=== PATIENT | female | born 1960 | race Caucasian/White ===

== ENCOUNTER 2016-12-03 17:03 | Emergency (ER) | payer MEDICAID ==
[~2016-12-03] VITALS: Ht 162.6 cm; Wt 90.7 kg
[~2016-12-03 17:03] MED LIST: AC500T PO; ACET-1697 PO; AMOXICILLIN 875MG PO; BACL20TA PO; BCL10T PO; CYCL10TA45 PO; CYCL10TA9 PO; DULO60CA6 PO; ESCT10T; GBPN600T PO; HYDR-3714 PO; IBP800T PO; LORA0.5T PO; LVST20T; MECL25TA56 PO; OMEP40CA36 PO; OMG1KC PO; ONDA-42 SL; PRED10TA PO; PRILOSEC; TRAM-21 PO; TRAM50TA2 PO
[2016-12-03] MEDS ORDERED: ASPIRIN 81 MG CHEW (CHILDREN'S ASA) ONE (17:20)
[2016-12-03] MEDS ORDERED: ASPIRIN 81 MG CHEW (CHILDREN'S ASA) PO ONE (17:30)
[2016-12-03] MEDS ORDERED: RX-NITROGLYCERIN 0.4 MG TAB BTL 25'S SL ONE (17:30)
[2016-12-03 17:33] LABS: BASOPHILS # (AUTO) 0.1 10^3/uL (0.0-0.1); BASOPHILS % (AUTO) 1 % (0-10); EOSINOPHILS # (AUTO) 0.2 10^3/uL (0.0-0.3); EOSINOPHILS % (AUTO) 2 % (0-10); LYMPHOCYTES # (AUTO) 5.6 X 10^3 (1.0-4.0); LYMPHOCYTES % (AUTO) 46 % (12-44); MEAN CORPUSCULAR HEMOGLOBIN 29 PG (25-34); MEAN CORPUSCULAR HGB CONC 34 G/DL (32-36); MEAN CORPUSCULAR VOLUME 86 FL (80-99); MEAN PLATELET VOLUME 10.5 FL (7.4-10.4); MONOCYTES # (AUTO) 1.3 X 10^3 (0.0-1.0); MONOCYTES % (AUTO) 11 % (0-12); NEUTROPHILS % (AUTO) 41 % (42-75); PLATELET COUNT 271 10^3/uL (130-400); RED BLOOD COUNT 5.44 10^6/uL (4.35-5.85); RED CELL DISTRIBUTION WIDTH 13.6 % (10.0-14.5); WHITE BLOOD COUNT 12.2 10^3/uL (4.3-11.0)
[2016-12-03 17:42] LABS: PROTHROMBIN TIME PATIENT 12.6 SEC (12.2-14.7)
--- NOTE | 2016-12-03 17:46 | Diagnostic Imaging Report ---
Indication: Chest pain. Discussion: Single portable upright view of the chest was obtained, comparison 06/09/2016. No adverse interval change. The lungs remain hyperinflated. No focal consolidation, pleural fluid, or pneumothorax. Stable normal heart size. No osseous abnormality. Impression: 1. Stable pulmonary hyperinflation. Dictated by: Dictated on workstation # [id number]
[2016-12-03 17:50] LABS: ALANINE AMINOTRANSFERASE 36 U/L (0-55); ALBUMIN 4.2 G/DL (3.2-4.5); ANION GAP 10 MMOL/L (5-14); ASPARTATE AMINO TRANSFERASE 20 U/L (5-34); BILIRUBIN,TOTAL 0.4 MG/DL (0.1-1.0); BLOOD UREA NITROGEN 15 MG/DL (7-18); BUN/CREATININE RATIO 18; CARBON DIOXIDE 23 MMOL/L (21-32); CHLORIDE 108 MMOL/L (98-107); CREATININE SERUM 0.83 MG/DL (0.60-1.30); GFR ESTIMATED > 60; GLUCOSE 106 MG/DL (70-105); MAGNESIUM 2.1 MG/DL (1.8-2.4); SODIUM 141 MMOL/L (135-145); TOTAL PROTEIN 7.5 G/DL (6.4-8.2)
[2016-12-03 17:56] LABS: MYOGLOBIN SERUM 26.1 NG/ML (10.0-92.0)
--- NOTE | 2016-12-03 17:59 | ED Chest Pain ---
General Chief Complaint: Chest Pain Stated Complaint: CP Nursing Triage Note: PT TO ED 7 W/ C/O CHEST PAIN ONSET X2-3 DAYS, WORSE TODAY. Nursing Sepsis Screen: No Definite Risk Source: patient, old records Exam Limitations: no limitations History of Present Illness Time seen by provider: 17:20 Initial Comments This 56-year-old woman presents to emergency room with complaints of chest pain intermittently over the past few days. Pain today started upon waking. She describes it as an aching that radiates to the neck, left arm, and shoulder. She now rates it as 7/10. She reports having bronchitis a couple of weeks ago which seems to have improved. She has associated nausea and shortness of air. She cannot identify any specific exacerbating or alleviating factors. Review of her chart reveals a cardiac catheterization in 2013. She had irregularity of the coronary arteries without any obstructive disease. Her primary care provider is Irene Vick in [place]. Her recruiting administrator is Dr. Melendez. She has not followed up with Dr. Melendez since the cardiac catheter. She does continue to smoke. Her anterior chest wall is tender to palpation. Allergies and Home Medications Allergies Coded Allergies: propoxyphene (Verified Allergy, Unknown, 10/09/06) morphine (Verified Adverse Reaction, Unknown, 01/05/15) Home Medications [place] 3 Polyunsat Fatty Acids 1,000 Mg Cap, 1,000 MG PO DAILY, (Reported) Prednisone 20 Mg Tab, 20 MG PO DAILY, #3 Prescribed by: ANDREW QUIÑONEZ on 12/03/16 1910 Tramadol Hcl 50 Mg Tablet, 50-100 MG PO BID PRN for PAIN, (Reported) TAKES 1-2 (50MG) TABLET Review of Systems Constitutional: no symptoms reported EENTM: No Symptoms Reported Respiratory: See HPI Cardiovascular: See HPI Gastrointestinal: See HPI Genitourinary: No Symptoms Reported Musculoskeletal: see HPI Skin: no symptoms reported Psychiatric/Neurological: No Symptoms Reported Endocrine: No Symptoms Reported Hematologic/Lymphatic: No Symptoms Reported Past Jkerqwk-Ndadqc-Qxflyo Hx Patient Social History Alcohol Use: Denies Use Recreational Drug Use: No Smoking Status: Current Everyday Smoker Type Used: Cigarettes 2nd Hand Smoke Exposure: Yes Recent Foreign Travel: No Contact w/Someone Who Travel: No Recent Infectious Disease Expo: No Recent Hopitalizations: Yes Immunizations Up To Date Tetanus Booster (TDap): More than 5yrs PED Vaccines UTD: Yes Date of Pneumonia Vaccine: January 23, 2013 Seasonal Allergies Seasonal Allergies: Yes Surgeries HX Surgeries: Yes (EGD) Surgeries: Section, Hysterectomy, Oophorectomy Respiratory Hx Respiratory Disorders: Yes (tobaccoism) Respiratory Disorders: COPD Cardiovascular Hx Cardiac Disorders: No Neurological Hx Neurological Disorders: Yes Neurological Disorders: Headaches /Migraines Reproductive System Hx Reproductive Disorders: Yes (CERVICAL DYSPLASIA / ?CANCER? 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 Genitourinary Hx Genitourinary Disorders: No Gastrointestinal Hx Gastrointestinal Disorders: Yes Gastrointestinal Disorders: Gastroesophageal Reflux, Hemorrhoids Musculoskeletal Hx Musculoskeletal Disorders: Yes Musculoskeletal Disorders: Fibromyalgia, Scoliosis, Chronic Back Pain Endocrine Hx Endocrine Disorders: Yes (HYPOGLYCEMIC-CONTROLS WITH DIET) HEENT HX ENT Disorders: No Cancer Hx Cancer: No Psychosocial Hx Psychiatric Problems: Yes (NO MEDICATIONS) Behavioral Health Disorders: Anxiety, Depression Integumentary HX Skin/Integumentary Disorder: No Blood Transfusions Hx Blood Disorders: No Adverse Reaction to a Blood Tr: No Family Medical History Significant Family History: Heart Disease, Cancer, COPD Physical Exam Vital Signs Vital Sign - Last 12Hours Capillary Refill : Less Than 3 Seconds General Appearance: WD/WN, Mild Distress HEENT: PERRL/EOMI, Normal ENT Inspection Neck: Normal Inspection Respiratory: Lungs Clear, Normal Breath Sounds, No Accessory Muscle Use, No Respiratory Distress, Other (left anterior chest wall tender to palpation) Cardiovascular: Regular Rate, Rhythm, No Edema, No Murmur Gastrointestinal: Normal Bowel Sounds, Non Tender, Soft Extremity: Normal Inspection, Non Tender, No Calf Tenderness, No Pedal Edema, Other (negative Marli) Neurologic/Psychiatric: Alert, Oriented x3, No Motor/Sensory Deficits, Normal Mood/Affect, wildlife biology internship II-XII Norm as Tested Skin: Normal Color, Warm/Dry Progress/Results/Core Measures Results/Orders Lab Results Laboratory Tests Test 12/03/16 17:25 Range/Units White Blood Count 12.2 H 4.3-11.0 10^3/uL Red Blood Count 5.44 4.35-5.85 10^6/uL Hemoglobin 16.0 11.5-16.0 G/DL Hematocrit 47 35-52 % Mean Corpuscular Volume 86 80-99 FL Mean Corpuscular Hemoglobin 29 25-34 PG Mean Corpuscular Hemoglobin Concent 34 32-36 G/DL Red Cell Distribution Width 13.6 10.0-14.5 % Platelet Count 271 130-400 10^3/uL Mean Platelet Volume 10.5 H 7.4-10.4 FL Neutrophils (%) (Auto) 41 L 42-75 % Lymphocytes (%) (Auto) 46 H 12-44 % Monocytes (%) (Auto) 11 0-12 % Eosinophils (%) (Auto) 2 0-10 % Basophils (%) (Auto) 1 0-10 % Neutrophils # (Auto) 5.0 1.8-7.8 X 10^3 Lymphocytes # (Auto) 5.6 H 1.0-4.0 X 10^3 Monocytes # (Auto) 1.3 H 0.0-1.0 X 10^3 Eosinophils # (Auto) 0.2 0.0-0.3 10^3/uL Basophils # (Auto) 0.1 0.0-0.1 10^3/uL Prothrombin Time 12.6 12.2-14.7 SEC INR Comment 1.0 0.8-1.4 Activated Partial Thromboplast Time 31 24-35 SEC Sodium Level 141 135-145 MMOL/L Potassium Level 4.0 3.6-5.0 MMOL/L Chloride Level 108 H 98-107 MMOL/L Carbon Dioxide Level 23 21-32 MMOL/L Anion Gap 10 5-14 MMOL/L Blood Urea Nitrogen 15 7-18 MG/DL Creatinine 0.83 0.60-1.30 MG/DL Estimat Glomerular Filtration Rate > 60 BUN/Creatinine Ratio 18 Glucose Level 106 H 70-105 MG/DL Calcium Level 10.0 8.5-10.1 MG/DL Magnesium Level 2.1 1.8-2.4 MG/DL Total Bilirubin 0.4 0.1-1.0 MG/DL Aspartate Amino Transf (AST/SGOT) 20 5-34 U/L Alanine Aminotransferase (ALT/SGPT) 36 0-55 U/L Alkaline Phosphatase 57 40-136 U/L Myoglobin 26.1 10.0-92.0 NG/ML Troponin I < 0.30 <0.30 NG/ML Total Protein 7.5 6.4-8.2 G/DL Albumin 4.2 3.2-4.5 G/DL My Orders Orders - ANDREW GALLARDO MD Cbc With Automated Diff (12/03/16 17:18) Magnesium (12/03/16 17:18) Chest 1 View, Ap/Pa Only (12/03/16 17:18) Ekg Tracing (12/03/16 17:18) Cardiac Profile 1 (12/03/16 17:18) Comprehensive Metabolic Panel (12/03/16:18) Myoglobin Serum (12/03/16:18) Protime With Inr (12/03/16 17:18) Partial Thromboplastin Time (12/03/16 17:18) O2 (12/03/16 17:18) Monitor-Rhythm Ecg Trace Only (12/03/16:18) Saline Lock/Iv-Start (12/03/16 17:18) Aspirin Chewable Tablet (Baby Aspirin Ch (12/03/16 17:20) Aspirin Chewable Tablet (Baby Aspirin Ch (12/03/16 17:30) Rx-Nitroglycerin Sl Tabs (Rx-Nitrostat S (12/03/16 17:30) Ketorolac Injection (Toradol Injection) (12/03/16 18:00) Medications Given in ED Vital Signs/I&O Vital Sign - Last 12Hours 12/03/16 12/03/16 12/03/16 17:11 17:11 19:17 Temp 96.9 Pulse 79 57 Resp 20 18 B/P (MAP) 137/82 Pulse Ox 98 96 O2 Delivery Room Air Room Air Blood Pressure Mean: 100 Progress Note : Progress Note Pain improved from 03/04 to 12/03 with Toradol. Pain is atypical in nature and reproducible with palpation. Case reviewed with Dr. Melendez who would like her to follow-up in the office. Review of labs reveals a lymphocytic predominance which would support a viral illness associated with the "bronchitis" patient described having 1 to 2 weeks ago. ECG Initial ECG Impression Date: Dec 03, 2016 Initial ECG Impression Time: 17:14 Initial ECG Rate: 63 Initial ECG Rhythm: Normal Sinus Initial ECG Intervals: Normal Initial ECG Impression: Normal Comment Normal sinus rhythm with no ST elevation or depression. No abnormal intervals or axis deviation. No significant change from prior. Diagnostic Imaging Diagonstic Imaging: Xray Plain Films/CT/US/NM/MRI: chest Comments Chest x-ray viewed by me and report reviewed. See report below: NAME: DEB BOSS [facility] REC#: [id number] PT STATUS: REG ER : 1960 PHYSICIAN: ANDREW GALLARDO MD ADMIT DATE: 12/03/16/ER Draft Date of Exam:12/03/16 CHEST 1 VIEW, AP/PA ONLY Indication: Chest pain. Discussion: Single portable upright view of the chest was obtained, comparison 06/09/2016. No adverse interval change. The lungs remain hyperinflated. No focal consolidation, pleural fluid, or pneumothorax. Stable normal heart size. No osseous abnormality. Impression: 1. Stable pulmonary hyperinflation. Dictated on workstation # [id number] Dict: 12/03/161741 Trans: 12/03/16 1745 [facility] [id number] Interpreted by: BOSTON JOLLEY MD Departure Impression Impression: Primary Impression: Chest wall pain Additional Impression: Viral syndrome Disposition: 01 HOME, SELF-CARE Condition: Improved Departure-Patient Inst. Referrals: NO,LOCAL PHYSICIAN (PCP/Family) Primary Care Physician Patient Instructions: Costochondritis (DC), Chest Pain That Is Not Caused by the Heart (DC) Add. Discharge Instructions: Take ibuprofen up to 600 mg every 6 hours as needed for pain. Take Ibuprofen with food or milk. Add Tylenol (acetaminophen) up to 1000 mg as needed for additional pain relief. Follow-up with Dr. Melendez and your primary care provider as soon as possible. Work toward quitting smoking. Seek assistance from your doctor if necessary. Return to ER if symptoms worsen. All discharge instructions reviewed with patient and/or family. Voiced understanding. Scripts Prednisone (Prednisone) 20 Mg Tab 20 MG PO DAILY, #3 TAB Prov: ANDREW GALLARDO MD 12/03/16 Copy Copies To 1: GLORIA MELENDEZ MD, JOSHUA T MD Dec 03, 2016 17:59
[2016-12-03] MEDS ORDERED: KETOROLAC 30 MG/ML VIAL IVP ONE (18:00)
[2016-12-03] MEDS ORDERED: PRD20T PO (19:10)
[2016-12-03 19:17] VITALS: BP 118/71
== END 2016-12-03 19:17 | disposition home or self-care (01) ==
LOC: EDUNIT# 17:03 → ER 17:06
DX: R07.89 Other chest pain (principal); B34.9 Viral infection, unspecified; J44.9 Chronic obstructive pulmonary disease, unspecified; F17.210 Nicotine dependence, cigarettes, uncomplicated
CPT/HCPCS: 36415; 71010; 80053; 83735; 83874; 84484; 85025; 85610; 85730; 93005; 96374

== ENCOUNTER → 2018-12-19 | Outpatient (CLI) | payer SELFPAY ==
[~2018-12-19] MED LIST changes: +PRD20T PO
--- NOTE | 2018-12-19 15:19 | Diagnostic Imaging Report ---
MRI LT UPPER EXT JOINT W/O TECHNIQUE: Multiplanar, multisequence MR imaging of the left shoulder was performed without contrast. COMPARISON: None available. INDICATION: Left shoulder pain and decreased range of motion. FINDINGS: Rotator cuff: No high-grade partial or full-thickness rotator cuff tear. Low-grade partial-thickness bursal sided tear of the conjoined insertional fibers of supraspinatus and infraspinatus involves less than 50% of the thickness. No rotator cuff muscle atrophy or denervation injury. Glenoid labrum: By non-arthrogram imaging, the glenoid labrum appears intact. No para-labral cyst. Long head of biceps: Long head of biceps is normally positioned within the bicipital groove. The intracapsular segment is intact. Bones and cartilage: Humeral head is normal in morphology without fracture or focal osseous lesion. No glenohumeral chondromalacia. Minimal degenerative capsular hypertrophy of the acromioclavicular joint. No inferior projecting osteophytes into the subacromial space. Soft tissues: No glenohumeral joint effusion. Ill defined capsular thickening inferior axillary pouch. No fluid or inflammatory like signal within the subacromial/subdeltoid space to indicate bursitis. IMPRESSION: 1. Low-grade partial-thickness bursal-sided tear of the conjoined insertional fibers of supraspinatus and infraspinatus. No retracted rotator cuff tear or muscle atrophy. 2. MRI features suggest adhesive capsulitis. Correlation with physical exam is advised. 3. Long head of biceps is intact. Dictated by: Dictated on workstation # [id number]
== END ==
LOC: RAD 13:58
PROVIDERS: ATTEND Nurse Practitioner Primary Care
DX: M75.102 Unspecified rotator cuff tear or rupture of left shoulder, not specified as traumatic (principal)
CPT/HCPCS: 73221

== ENCOUNTER → 2019-04-24 | Outpatient (CLI) | payer OTHER ==
[~2019-04-24] MED LIST changes: +GADOBUTROL 10 MMOL/10 ML (GADAVIST) VIAL IV ONE
--- NOTE | 2019-04-24 13:41 | Diagnostic Imaging Report ---
CLINICAL INDICATION: Patient has been having dizzy spells for several weeks now. EXAM: MRI of the brain performed without and with 10 cc of Gadavist IV contrast. Sequences include axial DWI, ADC map, coronal gradient echo, axial T2, axial FLAIR, axial T1, axial T1 post IV contrast, coronal T1 fat-sat post IV contrast, and sagittal T1 post IV contrast. COMPARISON: None. FINDINGS: There is no evidence of acute cerebral infarct, intracranial hemorrhage, or gross mass effect. There is no abnormal IV contrast enhancement. The brain parenchymal volume appears appropriate for patient's age. There are a few focal areas of high T2 signal white matter changes involving both frontal lobes, likely representing chronic small vessel ischemic disease. There is normal marino-white matter distinction. There is no significant midline shift or herniation. The [place] vascular structures show no gross abnormality as visualized. There is no evidence of hydrocephalus. The basal cisterns are unremarkable. The skull, extracranial soft tissue, and orbits are unremarkable. The paranasal sinuses are unremarkable. Temporal bones show no significant abnormality. IMPRESSION: Age-related brain parenchymal changes with no acute intracranial process. There is no abnormal IV contrast enhancement. Dictated by: Dictated on workstation # [id number]
== END ==
LOC: RAD 04-20 10:57
PROVIDERS: ATTEND Nurse Practitioner Primary Care
DX: G93.89 Other specified disorders of brain (principal)
CPT/HCPCS: 70553

== ENCOUNTER 2022-01-23 12:49 | Emergency (ER) | payer SELFPAY ==
[~2022-01-23] VITALS: Ht 162.5 cm; Wt 95.2 kg
[~2022-01-23 12:49] MED LIST changes: -GADOBUTROL 10 MMOL/10 ML (GADAVIST) VIAL IV ONE
[2022-01-23] MEDS ORDERED: NS IV 1000 ML 1,000 ML IV SCH (13:45)
--- NOTE | 2022-01-23 13:52 | ED General ---
General Chief Complaint: Dizziness/Syncope Stated Complaint: LOW TEMP,DIZZINESS Nursing Triage Note: Pt ambulatory to ED c/o dizziness and sinus pain onset yesterday. Hx of sinus infections, has been taking meclizine. Pt also reprots low temp at home-95degrees History of Present Illness Date Seen by Provider: January 23, 2022 Time Seen by Provider: 13:29 Initial Comments 61-year-old female with PMH of vertigo/COPD, is here with complaints of severe dizziness which began last night and has progressively worsened today. Patient takes meclizine as needed when she has dizziness, but it did not work today which is unusual for her. The patient became concerned and is in the ER for this reason. Patient also thinks that she has been dehydrated since she has not been drinking much liquids over the past few days. Patient denies weakness in her right or left side of her body and her extremities, headache, neck pain, neck stiffness, chest pain, shortness of breath, abdominal pain, diarrhea, n ausea and vomiting. Patient also has a ringing in her years and is concerned for facial pain under her eyes and above her eyes. Denies falls, head strike, LOC. Allergies and Home Medications Allergies Coded Allergies: propoxyphene (Verified Allergy, Unknown, 10/09/06) morphine (Verified Adverse Reaction, Unknown, 01/05/15) Patient Home Medication List Home Medication List Reviewed: Yes [place] 3 Polyunsat Fatty Acids (Fish Oil) 1,000 Mg Cap, 1,000 MG PO DAILY, (Reported) Entered as Reported by: CANDY SNYDER on 01/23/13 0833 Prednisone (Prednisone) 20 Mg Tab, 20 MG PO DAILY Prescribed by: ANDREW QUIÑONEZ on 12/03/16 191 Tramadol Hcl (Tramadol Hcl) 50 Mg Tablet, 50-100 MG PO BID PRN for PAIN, (Reported) Entered as Reported by: KIRBY BURTON on 01/06/15 0938 Review of Systems Review of Systems Constitutional: dizziness EENTM: other (ear ringing and facila pain) Respiratory: no symptoms reported Cardiovascular: no symptoms reported Gastrointestinal: no symptoms reported Genitourinary: no symptoms reported Musculoskeletal: no symptoms reported Skin: no symptoms reported Psychiatric/Neurological: No Symptoms Reported Hematologic/Lymphatic: No Symptoms Reported Immunological/Allergic: no symptoms reported Past Flcqszj-Dnnhlj-Jfanqz Hx Patient Social History Tobacco Use?: No Substance use?: No Alcohol Use?: No Immunizations Up To Date Tetanus Booster (TDap): More than 5yrs PED Vaccines UTD: Yes Influenza Vaccine Up-to-Date: No; Not Current Seasonal Allergies Seasonal Allergies: Yes Past Medical History Surgery/Hospitalization HX: COPD Section, Hysterectomy, Oophorectomy COPD Headaches /Migraines Reproductive Disorders: Yes (CERVICAL DYSPLASIA / ?CANCER? --NO CHEMO OR RADIATION--S/P HYST/BSO) CORRUGATED BOX MACHINE OPERATOR History: Hysterectomy Sexually Transmitted Disease: No HIV/AIDS: No Gastroesophageal Reflux, Hemorrhoids Fibromyalgia, Scoliosis, Chronic Back Pain Anxiety, Depression Adverse Reaction/Blood Tranf: No Family Medical History Heart Disease, Cancer, COPD Physical Exam Vital Signs Vital Signs - First Documented 01/23/22 13:23 Temp 36.8 Pulse 62 Resp 18 Pulse Ox 98 O2 Delivery Room Air Capillary Refill : Less Than 3 Seconds Height, Weight, BMI Height: 5'4.00" Weight: 200lbs. 9.0oz. 90.544405ry; 36.00 BMI Method:Stated General Appearance: No Apparent Distress HEENT: PERRL/EOMI Neck: Full Range of Motion, Normal Inspection, Non Tender, Supple Respiratory: Chest Non Tender, Lungs Clear, Normal Breath Sounds Cardiovascular: Regular Rate, Rhythm, No Edema Gastrointestinal: Normal Bowel Sounds, Non Tender, Soft Back: Normal Inspection, No CVA Tenderness, No Vertebral Tenderness Extremity: Normal Inspection, Normal Range of Motion Neurologic/Psychiatric: Alert, Oriented x3, No Motor/Sensory Deficits, Normal Mood/Affect, document review specialist II-XII Norm as Tested Skin: Normal Color, Other (tenting of skin and dry mucous membranes) Progress/Results/Core Measures Suspected Sepsis SIRS Temperature: Pulse: 62 Respiratory Rate: 18 Laboratory Tests 01/23/22 13:57: White Blood Count 9.4 Blood Pressure / Mean: Laboratory Tests 01/23/22 13:57: Creatinine 0.71, INR Comment 1.0, Platelet Count 269, Total Bilirubin 0.5 Results/Orders Lab Results Laboratory Tests Test 01/23/22 13:57 01/23/22 14:07 Range/Units White Blood Count 9.4 4.3-11.0 10^3/uL Red Blood Count 4.89 3.80-5.11 10^6/uL Hemoglobin 14.3 11.5-16.0 g/dL Hematocrit 42 35-52 % Mean Corpuscular Volume 87 80-99 fL Mean Corpuscular Hemoglobin 29 25-34 pg Mean Corpuscular Hemoglobin Concent 34 32-36 g/dL Red Cell Distribution Width 12.7 10.0-14.5 % Platelet Count 269 130-400 10^3/uL Mean Platelet Volume 10.3 9.0-12.2 fL Immature Granulocyte % (Auto) 0 % Neutrophils (%) (Auto) 46 42-75 % Lymphocytes (%) (Auto) 44 12-44 % Monocytes (%) (Auto) 8 0-12 % Eosinophils (%) (Auto) 1 0-10 % Basophils (%) (Auto) 1 0-10 % Neutrophils # (Auto) 4.3 1.8-7.8 10^3/uL Lymphocytes # (Auto) 4.1 H 1.0-4.0 10^3/uL Monocytes # (Auto) 0.8 0.0-1.0 10^3/uL Eosinophils # (Auto) 0.1 0.0-0.3 10^3/uL Basophils # (Auto) 0.1 0.0-0.1 10^3/uL Immature Granulocyte # (Auto) 0.0 0.0-0.1 10^3/uL Prothrombin Time 13.7 12.2-14.7 SEC INR Comment 1.0 0.8-1.4 Activated Partial Thromboplast Time 36 H 24-35 SEC D-Dimer <= 0.27 0.00-0.49 UG/ML Sodium Level 141 135-145 MMOL/L Potassium Level 4.0 3.6-5.0 MMOL/L Chloride Level 106 98-107 MMOL/L Carbon Dioxide Level 23 21-32 MMOL/L Anion Gap 12 5-14 MMOL/L Blood Urea Nitrogen 11 7-18 MG/DL Creatinine 0.71 0.60-1.30 MG/DL Estimat Glomerular Filtration Rate 97 BUN/Creatinine Ratio 15 Glucose Level 137 H 70-105 MG/DL Calcium Level 9.4 8.5-10.1 MG/DL Corrected Calcium 9.3 8.5-10.1 MG/DL Total Bilirubin 0.5 0.1-1.0 MG/DL Aspartate Amino Transf (AST/SGOT) 23 5-34 U/L Alanine Aminotransferase (ALT/SGPT) 43 0-55 U/L Alkaline Phosphatase 62 40-136 U/L Troponin I < 0.028 <0.028 NG/ML Total Protein 7.4 6.4-8.2 GM/DL Albumin 4.1 3.2-4.5 GM/DL Urine Color YELLOW Urine Clarity CLEAR Urine pH 6.0 5-9 Urine Specific [place] 1.015 L 1.016-1.022 Urine Protein NEGATIVE NEGATIVE Urine Glucose (UA) NEGATIVE NEGATIVE Urine Ketones NEGATIVE NEGATIVE Urine Nitrite NEGATIVE NEGATIVE Urine Bilirubin NEGATIVE NEGATIVE Urine Urobilinogen 0.2 < = 1.0 MG/DL Urine Leukocyte Esterase 1+ H NEGATIVE Urine RBC (Auto) TRACE-I H NEGATIVE Urine RBC RARE /HPF Urine WBC 5-10 H /HPF Urine Squamous Epithelial Cells 2-5 /HPF Urine Crystals NONE /LPF Urine Bacteria MODERATE H /HPF Urine Casts NONE /LPF Urine Mucus NEGATIVE /LPF Urine Culture Indicated YES My Orders Orders - MAR BLACK MD Cbc With Automated Diff (01/23/22 13:43) Protime With Inr (01/23/22 13:43) Partial Thromboplastin Time (01/23/22 13:43) Comprehensive Metabolic Panel (01/23/22 13:43) Fibrin Degradation Products (01/23/22 13:43) Troponin I Giuliana (01/23/22 13:43) Ua Culture If Indicated (01/23/22 13:43) Ekg Tracing (01/23/22 13:43) Nothing By Mouth (01/23/22 Lunch) Accucheck Stat ONCE (01/23/22 13:43) Ed Iv/Invasive Line Start (01/23/22 13:43) Vital Signs Stroke Patient Q15M (01/23/22 13:43) Ct Head Wo-R/O Stroke (01/23/22 13:43) Monitor-Rhythm Ecg Trace Only (01/23/22 13:43) Dysphagia Screening Tool [id number] (01/23/22 13:43) Ed Iv/Invasive Line Start (01/23/22 13:45) Ns Iv 1000 Ml (Sodium Chloride 0.9%) (01/23/22 13:45) Urine Culture (01/23/22 14:07) Vital Signs/I&O 01/23/22 13:23 Temp 36.8 Pulse 62 Resp 18 B/P (MAP) Pulse Ox 98 O2 Delivery Room Air Capillary Refill : Less Than 3 Seconds Progress Note : Progress Note 1. NEAR SYNCOPE/ VERTIGO - CT HEAD: normal - Troponin/ EKG: normal - Labs unremarkable - NS IVF bolus -The patient was seen in the ED, and treated appropriately to presentation at a specific point in time. Patient is informed that there is a possibility that disease and illness can evolve and change in acuity rapidly or slowly after patient is discharged from the ER. Precautionary advice given to the patient for immediate return to ER if symptoms worsen or do not resolve, and to seek emergency care sooner rather than later. Pt also advised on the importance of PCP follow up and compliance with management and follow up plan with PCP and/or specialist, as this is part of the management plan. Pt verbally expressed understanding. 2. UTI/ DEHYDRATION: - UA positive for leukocyte esterase, bacteria, WBC, and RBC - NS IVF bolus - Nitrofurantoin 100mg BID for 7 days -Adequate hydration advised -Follow-up with PCP within the next 5 to 7 days Diagnostic Imaging Diagonstic Imaging: CT Plain Films/CT/US/NM/MRI: head Comments [facility]. [place], [place] NAME: DEB BOSS [facility] REC#: [id number] PT STATUS: REG ER : 1960 PHYSICIAN: MAR BLACK MD ADMIT DATE: 01/23/22/ER Signed Date of Exam:01/23/22 CT HEAD WO-R/O STROKE EXAMINATION: CT head without contrast. TECHNIQUE: Multiple contiguous axial images were obtained through the brain without the use of intravenous contrast. All CT scans use one or more of the following dose optimizing techniques: automated exposure control, MA and/or KvP adjustment based on patient size and exam type or iterative reconstruction. HISTORY: Dizziness. Concern for acute ischemia. COMPARISON: MRI brain on 04/24/2019. FINDINGS: No large acute territorial ischemia, mass, or hemorrhage. No midline shift or mass effect. The ventricles, cortical sulci, and basilar cisterns are patent and unremarkable. The orbits are normal. Paranasal sinuses are normal. Mastoid air cells are clear. No soft tissue abnormality is seen. No osseus lesions or fractures are seen. IMPRESSION: No large acute territorial ischemia, mass, or hemorrhage. Dictated by: Dictated on workstation # [id number] Dict: 01/23/22 1424 Trans: 01/23/22 1434 [id number] Interpreted by: DEJAN DYKES DO Electronically signed by: DEJAN DYKES DO 01/23/22 1434 Departure Impression Primary Impression: Acute cystitis Qualified Codes: N30.01 - Acute cystitis with hematuria Additional Impressions: Near syncope Dehydration Disposition: HOME, SELF-CARE Condition: Stable Departure-Patient Inst. Referrals: [facility] [place] [place] (PCP/Family) Primary Care Physician Patient Instructions: Vertigo (a Type of Dizziness) (DC), Vasovagal Response (DC), Urinary Tract Infection, Adult (DC), Near Fainting (DC) Add. Discharge Instructions: - Nitrofurantoin 100mg BID for 7 days -Adequate hydration advised -Follow-up with PCP within the next 5 to 7 days -Return to ER if symptoms worsen or do not improve. All discharge instructions reviewed with patient and/or family. Voiced understanding. Scripts Nitrofurantoin Macrocrystal (Nitrofurantoin) 100 Mg Capsule 100 MG PO BID for 7 Days, #14 CAP Prov: MAR BLACK MD 01/23/22 Work/School Note: Work Release Form Date Seen in the Emergency Department: January 23, 2022 Return to Work: Jan 25, 2022 Restrictions: No Restrictions MAR BLACK MD January 23, 2022 13:52
[2022-01-23 14:06] LABS: BASOPHILS # (AUTO) 0.1 10^3/uL (0.0-0.1); BASOPHILS % (AUTO) 1 % (0-10); EOSINOPHILS # (AUTO) 0.1 10^3/uL (0.0-0.3); EOSINOPHILS % (AUTO) 1 % (0-10); HEMATOCRIT 42 % (35-52); HEMOGLOBIN 14.3 g/dL (11.5-16.0); LYMPHOCYTES # (AUTO) 4.1 10^3/uL (1.0-4.0); LYMPHOCYTES % (AUTO) 44 % (12-44); MEAN CORPUSCULAR HEMOGLOBIN 29 pg (25-34); MEAN CORPUSCULAR HGB CONC 34 g/dL (32-36); MEAN CORPUSCULAR VOLUME 87 fL (80-99); MEAN PLATELET VOLUME 10.3 fL (9.0-12.2); MONOCYTES # (AUTO) 0.8 10^3/uL (0.0-1.0); MONOCYTES % (AUTO) 8 % (0-12); NEUTROPHILS # (AUTO) 4.3 10^3/uL (1.8-7.8); NEUTROPHILS % (AUTO) 46 % (42-75); PLATELET COUNT 269 10^3/uL (130-400); WHITE BLOOD COUNT 9.4 10^3/uL (4.3-11.0)
[2022-01-23 14:11] LABS: BILIRUBIN,URINE NEGATIVE (NEGATIVE); CLARITY,URINE CLEAR; COLOR,URINE YELLOW; GLUCOSE, URINE (UA) NEGATIVE (NEGATIVE); KETONES,URINE NEGATIVE (NEGATIVE); LEUKOCYTE ESTERASE ,URINE 1+ (NEGATIVE); NITRITE,URINE NEGATIVE (NEGATIVE); PROTEIN,URINE NEGATIVE (NEGATIVE)
[2022-01-23 14:16] LABS: ALBUMIN 4.1 GM/DL (3.2-4.5); CHLORIDE 106 MMOL/L (98-107); SODIUM 141 MMOL/L (135-145)
[2022-01-23 14:17] LABS: CALCIUM 9.4 MG/DL (8.5-10.1)
[2022-01-23 14:18] LABS: BACTERIA,URINE MODERATE /HPF; RBC,URINE RARE /HPF
[2022-01-23 14:18] LABS: GLUCOSE 137 MG/DL (70-105); TOTAL PROTEIN 7.4 GM/DL (6.4-8.2)
[2022-01-23 14:20] LABS: BILIRUBIN,TOTAL 0.5 MG/DL (0.1-1.0); CARBON DIOXIDE 23 MMOL/L (21-32)
[2022-01-23 14:21] LABS: FIBRIN DEGRADATION PRODUCTS <= 0.27 UG/ML (0.00-0.49); PARTIAL THROMBOPLASTIN TIME 36 SEC (24-35); PROTHROMBIN TIME PATIENT 13.7 SEC (12.2-14.7)
[2022-01-23 14:22] LABS: ALKALINE PHOSPHATASE 62 U/L (40-136); CREATININE SERUM 0.71 MG/DL (0.60-1.30); GFR ESTIMATED 97
[2022-01-23 14:23] LABS: BUN/CREATININE RATIO 15
[2022-01-23 14:25] LABS: ALANINE AMINOTRANSFERASE 43 U/L (0-55)
--- NOTE | 2022-01-23 14:31 | Diagnostic Imaging Report ---
EXAMINATION: CT head without contrast. TECHNIQUE: Multiple contiguous axial images were obtained through the brain without the use of intravenous contrast. All CT scans use one or more of the following dose optimizing techniques: automated exposure control, MA and/or KvP adjustment based on patient size and exam type or iterative reconstruction. HISTORY: Dizziness. Concern for acute ischemia. COMPARISON: MRI brain on 04/24/2019. FINDINGS: No large acute territorial ischemia, mass, or hemorrhage. No midline shift or mass effect. The ventricles, cortical sulci, and basilar cisterns are patent and unremarkable. The orbits are normal. Paranasal sinuses are normal. Mastoid air cells are clear. No soft tissue abnormality is seen. No osseus lesions or fractures are seen. IMPRESSION: No large acute territorial ischemia, mass, or hemorrhage. Dictated by: Dictated on workstation # [id number]
[2022-01-23] MEDS ORDERED: NITR100C PO (15:03)
[2022-01-23 15:15] VITALS: BP 121/64
== END 2022-01-23 15:40 | disposition home or self-care (01) ==
LOC: EDUNIT# 12:49 → ER 12:51
DX: R55 Syncope and collapse (principal); N30.01 Acute cystitis with hematuria; E86.0 Dehydration; Z87.19 Personal history of other diseases of the digestive system; Z90.710 Acquired absence of both cervix and uterus; Z90.722 Acquired absence of ovaries, bilateral
CPT/HCPCS: 36415; 70450; 80053; 81000; 84484; 85025; 85379; 85610; 85730; 87088; 93005; 93041